=== PATIENT | male | born 1980 | race Caucasian/White ===

== ENCOUNTER 2016-08-25 20:48 | Emergency (ER) | payer BC, OTHER ==
[2016-08-25 21:04] VITALS: BMI 36.5
--- NOTE | 2016-08-25 22:46 | PDOC ---
History of Present Illness - General Chief Complaint: Chest Pain Stated Complaint: CHEST PAIN Time Seen by Provider: 08/25/16 22:02 History Source: Patient Exam Limitations: No Limitations - History of Present Illness Initial Comments: 08/26/16 01:50 36-year-old male with no previous medical problems presents with atraumatic diffuse anterior chest wall tenderness for the past several days, nonpleuritic, radiating in a belt-like distribution posteriorly, exacerbated by palpation and truncal movements. Patient denies fevers/chills/nausea/vomiting/diarrhea. Patient denies lower extremity edema. There is no history of DVT or PE in the past. There is no family history of early cardiac . REVIEW OF SYSTEMS CONSTITUTIONAL: No fever, no chills, no fatigue EYES: No visual changes ENT: No ear pain, no sore throat CARDIOVASCULAR: + chest pain, no palpitations RESPIRATORY: No cough, no SOB GI: No abdominal pain, no nausea, no vomiting, no constipation, no diarrhea GENITOURINARY: No dysuria, no frequency, no hematuria MUSKULOSKELETAL: No backpain, no joint pain, no myalgias SKIN: No rash NEURO: No headache EXAMINATION CONSTITUTIONAL: Well-appearing; well-nourished; in no apparent distress HEAD: Normocephalic; atraumatic EYES: PERRL; EOM intact ENMT: External appears normal; normal oropharynx NECK: Supple; non-tender; no cervical lymphadenopathy CARD: Normal S1, S2; no murmurs, rubs, or gallops RESP: Normal chest excursion with respiration; breath sounds clear and equal bilaterally; + bilateral parasternal tenderness to palpation, reproducing the patient's symptoms; no wheezes, rhonchi, or rales ABD: Soft, non-distended; non-tender; no palpable organomegaly, no palpable hernias EXT: Normal ROM in all four extremities; non-tender to palpation; distal pulses intact SKIN: Warm, dry, no rash NEURO: No focal neurological deficiencies. Past History - Past Medical History Allergies/Adverse Reactions: Allergies Allergy/AdvReac Type Severity Reaction Status Date / Time Pork/Porcine Containing Allergy Verified 08/25/16 20:59 Products Home Medications: Ambulatory Orders NK [No Known Home Medication] 03/16/15 Kidney Stones: Yes - Immunization History Immunization Up to Date: Yes - Psycho/Social/Smoking Cessation Hx Anxiety: No Suicidal Ideation: No Smoking Status: No Smoking History: Never smoked Have you smoked in the past 12 months: Yes Number of Cigarettes Smoked Daily: 0 Information on smoking cessation initiated: No Hx Alcohol Use: No Drug/Substance Use Hx: No Substance Use Type: Alcohol *Physical Exam - Vital Signs Last Vital Signs Temp Pulse Resp BP Pulse Ox 98.3 F 76 16 146/86 98 08/25/16 20:59 08/25/16 20:59 08/25/16 20:59 08/25/16 20:59 08/25/16 20:59 Heart Score/ECG Review - History History: Slightly suspicious - Electrocardiogram EKG: Non specific repolarization disturbance - Age Age: </= 45 - Risk Factors Based on the list above the patient has:: No risk factors known - Troponin Troponin: </= normal limit - Score Heart Score - Total: 1 - ECG Intrepretation Comment:: 08/26/16 01:53 Normal sinus rhythm, 73, left axis deviation, RBBB, positive voltage criteria for LVH in lead aVL, Q waves in V1 and V2, inverted T in lead 3, abnormal EKG, unchanged from EKG performed in March 2015. ED Treatment Course - LABORATORY CBC & Chemistry Diagram: 08/25/16 23:27 08/25/16 23:27 - ADDITIONAL ORDERS Additional order review: Laboratory Results 08/26/16 08/25/16 08/25/16 01:34 23:27 23:27 INR Sodium 143 Potassium 3.8 Chloride 105 Carbon Dioxide 29 Anion Gap 9 BUN 14 Creatinine 1.1 Creat Clearance w eGFR > 60 Random Glucose 102 Calcium 9.0 Total Bilirubin 0.4 AST 26 D ALT 35 D Alkaline Phosphatase 83 Creatine Kinase 863 H Creatine Kinase Index 0.8 CK-MB (CK-2) 7.101 H CK-MB (CK-2) Rel Index Cancelled Troponin I < 0.02 Total Protein 6.9 Albumin 3.7 Urine Color Yellow Urine Appearance Clear Urine pH 5.0 D Urine Protein Negative Urine Glucose (UA) Negative Urine Ketones Negative Urine Blood Negative Urine Nitrite Negative Urine Bilirubin Negative Urine Urobilinogen Negative Ur Leukocyte Esterase Negative 08/25/16 23:27 INR 0.99 Sodium Potassium Chloride Carbon Dioxide Anion Gap BUN Creatinine Creat Clearance w eGFR Random Glucose Calcium Total Bilirubin AST ALT Alkaline Phosphatase Creatine Kinase Creatine Kinase Index CK-MB (CK-2) CK-MB (CK-2) Rel Index Troponin I Total Protein Albumin Urine Color Urine Appearance Urine pH Urine Protein Urine Glucose (UA) Urine Ketones Urine Blood Urine Nitrite Urine Bilirubin Urine Urobilinogen Ur Leukocyte Esterase 08/25/16 23:27 RBC 4.58 MCV 83.1 MCHC 32.3 RDW 14.7 MPV 10.9 Neutrophils % 61.5 Lymphocytes % 28.1 Monocytes % 8.0 Eosinophils % 1.8 D Basophils % 0.6 - RADIOLOGY Radiology Studies Ordered: Category Date Time Status CHEST PA & LAT [RAD] Stat Radiology 08/26/16 01:24 Taken Medical Decision Making - Medical Decision Making 08/26/16 01:53 Patient is a healthy 36-year-old male who presents with atypical, reproducible chest pain and abnormal EKG. Chest x-ray reveals no evidence of cardiomegaly or infiltrate or effusion. CBC/CMP within normal limit. Troponin is negative but CPK is elevated. I do not suspect ACS at this time. Rhabdomyolysis likely related to physical exertion is likely. Patient's heart score is 1. Will hydrate , we'll repeat cardiac enzymes at 6 hours. If trending down, we'll discharge with cardiology follow-up.
[2016-08-25 23:46] LABS: BASOPHIL 0.6 % (0-2.0); EOSINOPHIL 1.8 % (0-4.5); MCH 26.8 pg (25.7-33.7); MCHC 32.3 g/dl (32.0-35.9); MEAN CELL VOLUME 83.1 fl (80-96); MEAN PLT VOLUME 10.9 fl (7.5-11.1); NEUTROPHILS 61.5 % (42.8-82.8); PLATELET COUNT 191 K/MM3 (134-434); RDW 14.7 % (11.9-15.9); WHITE BLOOD COUNT 7.7 K/mm3 (4.0-10.0)
[2016-08-26 00:14] LABS: ALBUMIN 3.7 g/dl (3.4-5.0); ANION GAP 9 (8-16); BILIRUBIN,TOTAL 0.4 mg/dL (0.2-1.0); CO2 29 mmol/L (21-32); CREATININE 1.1 mg/dL (0.7-1.3); GLUCOSE,RANDOM 102 mg/dL (74-106); SGOT/AST 26 U/L (15-37); SGPT/ALT 35 U/L (12-78); TOT PROT 6.9 g/dl (6.4-8.2)
[2016-08-26 00:16] LABS: ALK PHOS 83 U/L (45-117); TROPONIN I < 0.02 ng/ml (0.00-0.05)
[2016-08-26 00:18] LABS: INR 0.99 (0.82-1.09); PROTHROMBIN TIME (PATIENT) 10.9 SEC (9.98-11.88)
[2016-08-26 01:40] LABS: URINE APPEARANCE CLEAR; URINE BILIRUBIN NEGATIVE (NEGATIVE); URINE BLOOD NEGATIVE (NEGATIVE); URINE COLOR YELLOW; URINE GLUCOSE (UA) NEGATIVE (NEGATIVE); URINE KETONE NEGATIVE (NEGATIVE); URINE LEUK ESTERASE NEGATIVE (NEGATIVE); URINE NITRITE NEGATIVE (NEGATIVE); URINE PROTEIN NEGATIVE (NEGATIVE); URINE UROBILINOGEN NEGATIVE E.U./dl (0.2-1.0)
[2016-08-26 05:46] LABS: TROPONIN I < 0.02 ng/ml (0.00-0.05)
[2016-08-26 06:12] VITALS: BP 140/86; PULSE 62; TEMP 97.8
--- NOTE | 2016-08-26 06:46 | PDOC ---
*Physical Exam - Vital Signs Last Vital Signs Temp Pulse Resp BP Pulse Ox 97.8 F 62 17 140/86 98 08/26/16 06:11 08/26/16 06:11 08/26/16 06:11 08/26/16 06:11 08/26/16 06:11 ED Treatment Course - LABORATORY CBC & Chemistry Diagram: 08/25/16 23:27 08/25/16 23:27 - ADDITIONAL ORDERS Additional order review: Laboratory Results 08/26/16 08/26/16 08/25/16 05:00 01:34 23:27 INR Sodium Potassium Chloride Carbon Dioxide Anion Gap BUN Creatinine Creat Clearance w eGFR Random Glucose Calcium Total Bilirubin AST ALT Alkaline Phosphatase Creatine Kinase 711 H Creatine Kinase Index CK-MB (CK-2) CK-MB (CK-2) Rel Index Cancelled Troponin I < 0.02 Total Protein Albumin Urine Color Yellow Urine Appearance Clear Urine pH 5.0 D Urine Protein Negative Urine Glucose (UA) Negative Urine Ketones Negative Urine Blood Negative Urine Nitrite Negative Urine Bilirubin Negative Urine Urobilinogen Negative Ur Leukocyte Esterase Negative 08/25/16 08/25/16 23:27 23:27 INR 0.99 Sodium 143 Potassium 3.8 Chloride 105 Carbon Dioxide 29 Anion Gap 9 BUN 14 Creatinine 1.1 Creat Clearance w eGFR > 60 Random Glucose 102 Calcium 9.0 Total Bilirubin 0.4 AST 26 D ALT 35 D Alkaline Phosphatase 83 Creatine Kinase 863 H Creatine Kinase Index 0.8 CK-MB (CK-2) 7.101 H CK-MB (CK-2) Rel Index Troponin I < 0.02 Total Protein 6.9 Albumin 3.7 Urine Color Urine Appearance Urine pH Urine Protein Urine Glucose (UA) Urine Ketones Urine Blood Urine Nitrite Urine Bilirubin Urine Urobilinogen Ur Leukocyte Esterase 08/25/16 23:27 RBC 4.58 MCV 83.1 MCHC 32.3 RDW 14.7 MPV 10.9 Neutrophils % 61.5 Lymphocytes % 28.1 Monocytes % 8.0 Eosinophils % 1.8 D Basophils % 0.6 *DC/Admit/Observation/Transfer Diagnosis at time of Disposition: Chest pain - Discharge Dispostion Disposition: HOME Condition at time of disposition: Stable - Referrals Referrals: Titi Arteaga MD [Primary Care Provider] - Francisco Haley MD [Staff Physician] - - Patient Instructions Printed Discharge Instructions: DI for Chest Pain - Post Discharge Activity
--- NOTE | 2016-08-26 17:05 | EKG ---
Test Reason : Blood Pressure : / mmHG Vent. Rate : 065 BPM Atrial Rate : 065 BPM P-R Int : 166 ms QRS Dur : 118 ms QT Int : 396 ms P-R-T Axes : 034 -27 -18 degrees QTc Int : 411 ms SINUS RHYTHM WITH OCCASIONAL PREMATURE VENTRICULAR COMPLEXES LEFT VENTRICULAR HYPERTROPHY WITH QRS WIDENING T WAVE ABNORMALITY, CONSIDER INFERIOR ISCHEMIA ABNORMAL ECG NO PREVIOUS ECGS AVAILABLE Confirmed by MD MARILEE, PREETI ([id number]) on 08/26/2016 5:05:31 PM Referred By: Confirmed By:PREETI HUNT MD
--- NOTE | 2016-08-26 17:13 | EKG ---
Test Reason : Blood Pressure : / mmHG Vent. Rate : 073 BPM Atrial Rate : 073 BPM P-R Int : 166 ms QRS Dur : 114 ms QT Int : 378 ms P-R-T Axes : 049 -31 -09 degrees QTc Int : 416 ms NORMAL SINUS RHYTHM POSSIBLE LEFT ATRIAL ENLARGEMENT LEFT AXIS DEVIATION RIGHT BUNDLE BRANCH BLOCK LEFT VENTRICULAR HYPERTROPHY CANNOT RULE OUT SEPTAL INFARCT , AGE UNDETERMINED NONSPECIFIC ST ABNORMALITY ABNORMAL ECG NO PREVIOUS ECGS AVAILABLE Confirmed by MD MARILEE, PREETI ([id number]) on 08/26/2016 5:12:47 PM Referred By: Confirmed By:PREETI HUNT MD
== END 2016-08-26 06:58 | disposition home or self-care (01) ==
LOC: JER 20:48
DX: R07.89 Other chest pain (principal); R74.8 Abnormal levels of other serum enzymes
CPT/HCPCS: 36415; 71020-TC; 80053; 81003; 82550; 82553; 84484; 85025; 85610; 87086; 93005; 93010; 99283-25

== ENCOUNTER 2017-03-01 15:25 | Emergency (ER) | payer BC ==
[2017-03-01 15:32] VITALS: BP 173/111; PULSE 72; TEMP 97.4; BMI 37.5
--- NOTE | 2017-03-01 15:33 | PDOC ---
Rapid Medical Evaluation Time Seen by Provider: 03/01/17 15:28 Medical Evaluation: Allergies Allergy/AdvReac Type Severity Reaction Status Date / Time Pork/Porcine Containing Allergy Verified 08/25/16 20:59 Products I have performed a brief in-person evaluation of this patient. The patient presents with a chief complaint of: low back pain x 3 days. Patient lifts heavy objects frequently at work and thinks that's where he injured his back. Worse with movements. Pertinent physical exam findings: No midline lumbar spine TTP or step offs. Reproducible pain with palpation of left lumbar paravertebral muscles. I have ordered the following: Nothing The patient will proceed to the ED for further evaluation.
[2017-03-01] MEDS ORDERED: KETOROLAC TROMETHAMINE 60 MG/2 ML VIAL IM ONE (15:53)
[2017-03-01] MEDS ORDERED: KETOROLAC TROMETHAMINE 60 MG/2 ML VIAL ONE (15:57)
--- NOTE | 2017-03-01 16:09 | PDOC ---
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 SURGICAL HISTORY: Denies ALLERGIES: Pork REVIEW OF SYSTEMS General/Constitutional: Denies fever or chills. Denies weakness, weight change. HEENT: Denies change in vision. Denies ear pain or discharge. Denies sore throat. Cardiovascular: Denies chest pain or shortness of breath. Respiratory: Denies cough, wheezing, or hemoptysis. Gastrointestinal: Denies nausea, vomiting, diarrhea or constipation. Denies rectal bleeding. Genitourinary: Denies dysuria, frequency, or change in urination. Musculoskeletal: Left lower back pain. Skin and breasts: Denies rash or easy bruising. rgy. PHYSICAL EXAM General Appearance: Well-appearing, appropriately dressed. No apparent distress , no intoxication. HEENT: EOMI, PERRLA, normal ENT inspection, normal voice, TMs normal, pharynx normal. No conjunctival pallor. No photophobia, scleral icterus. Neck: Supple. Trachea midline. No tenderness, rigidity, carotid bruit, stridor , lymphadenopathy, or thyromegaly. Respiratory/Chest: Lungs CTAB. No shortness of breath, chest tenderness, respiratory distress, accessory muscle use. No crackles, rales, rhonchi, stridor , wheezing, dullness Cardiovascular: RRR. S1, S2. No JVD, murmur, bradycardia, tachycardia. Vascular Pulses: Dorsalis-Pedis (R): 2+, Dorsalis-Pedis (L): 2+ Gastrointestinal/Abdominal: Normal bowel sounds. Abdomen soft, non-distended. No tenderness or rebound tenderness. No organomegaly, pulsatile mass, guarding , hernia, hepatomegaly, splenomegaly. Lymphatic: No adenopathy, tenderness. Musculoskeletal/Extremities: Normal inspection. FROM of all extremities, normal capillary refill. Pelvis Stable. No CVA tenderness. No tenderness to extremities, pedal edema, swelling, erythema or deformity. Integumentary: Appropriate color, dry, warm. No cyanosis, erythema, jaundice or rash Neurologic: dam attendant II-XII intact. Fully oriented, alert. Appropriate mood/affect. Motor strength 5/5. No appreciable EOM palsy, facial droop or sensory deficit. Past History - Past Medical History Allergies/Adverse Reactions: Allergies Allergy/AdvReac Type Severity Reaction Status Date / Time Pork/Porcine Containing Allergy Verified 03/01/17 15:32 Products Home Medications: Ambulatory Orders Cyclobenzaprine HCl 10 mg PO HS #7 tablet 03/01/17 Naproxen [Naprosyn -] 250 mg PO BID #14 tablet 03/01/17 COPD: No HTN: Yes Kidney Stones: Yes - Immunization History Immunization Up to Date: Yes - Suicide/Smoking/Psychosocial Hx Smoking Status: No Smoking History: Never smoked Have you smoked in the past 12 months: Yes Number of Cigarettes Smoked Daily: 0 Hx Alcohol Use: Yes (SOCIAL) Drug/Substance Use Hx: No Substance Use Type: Alcohol *Physical Exam - Vital Signs Last Vital Signs Temp Pulse Resp BP Pulse Ox 97.4 F L 72 20 173/111 99 03/01/17 15:28 03/01/17 15:28 03/01/17 15:28 03/01/17 15:28 03/01/17 15:28 Medical Decision Making - Medical Decision Making 03/01/17 16:09 36 yo M with no significant PMH presents to [facility] with pain to left lower back x "a few days." -Toradol 60 mg IM NSAIDS, muscle relaxants *DC/Admit/Observation/Transfer Diagnosis at time of Disposition: Pain of back and left lower extremity - Discharge Dispostion Disposition: HOME Condition at time of disposition: Stable Admit: No - Prescriptions Prescriptions: Cyclobenzaprine HCl 10 mg PO HS #7 tablet Naproxen [Naprosyn -] 250 mg PO BID #14 tablet - Referrals Referrals: Titi Arteaga MD [Primary Care Provider] - Dario Aguayo MD [Staff Physician] - - Patient Instructions Printed Discharge Instructions: DI for Low Back Pain Additional Instructions: Please take medication as prescribed, do NOT drive, drink alcohol, or operate machinery while taking cyclobenzaprine. As discussed, if your symptoms do not improve in 5-7 days, please follow up with an orthopedics for further evaluation and a possible MRI or physical therapy. If you experience any loss of sensation to your extremities, any loss of bowel or bladder function, any swelling or increased pain to your leg, please return to the ER. - Post Discharge Activity Forms/Work/School Notes: Back to Work
== END 2017-03-01 16:28 | disposition home or self-care (01) ==
LOC: JERFT 15:25
PROC: 3E0233Z Introduction of Anti-inflammatory into Muscle, Percutaneous Approach (ICD-10-PCS; principal; 2017-03-01)
DX: M54.5 Low back pain (principal); M79.662 Pain in left lower leg
CPT/HCPCS: 99281-25

== ENCOUNTER 2017-04-26 13:19 | Emergency (ER) | payer BC ==
[2017-04-26 13:33] VITALS: BMI 21.2
[2017-04-26 15:07] LABS: BASO % 0.6 % (0-2.0); EOS % 0.3 % (0-4.5); HEMATOCRIT 40.9 % (35.4-49); HEMOGLOBIN 13.5 GM/dL (11.7-16.9); LYMPH % 15.1 % (8-40); MCH 27.4 pg (25.7-33.7); MEAN CELL VOLUME 83.1 fl (80-96); MEAN PLT VOLUME 10.3 fl (7.5-11.1); MONO % 11.5 % (3.8-10.2); NEUT % 72.5 % (42.8-82.8); PLATELET COUNT 195 K/MM3 (134-434); RBC 4.92 M/mm3 (4.00-5.60); WHITE BLOOD COUNT 4.7 K/mm3 (4.0-10.0)
--- NOTE | 2017-04-26 15:11 | PDOC ---
History of Present Illness - General Chief Complaint: Pain, Acute Stated Complaint: PAIN/ CHEST, SIDE Time Seen by Provider: 04/26/17 14:15 - History of Present Illness Initial Comments: 04/26/17 15:11 36 y.o. male with a PMH of HTN (intermittently treated, has not taken medications for the last 2-3 months) who presents to the ED today c/o 3 day h/o of abdominal pain that is sharp, intermittent, varying in intensity from 5/10-10 /10 that radiates to his back. Patient denies any associated nausea/vomiting, diarrhea/constipation. Patient has been tolerating PO intake and notes his last BM was this morning and was normal. Patient further denies any testicular pain, scrotal pain, dysuria/hematuria. Patient notes he was evaluated by his PMD last week and was told he needed to start on HTN medications however he has not done so yet. NKDA Surgical: R Hand Surgery Social: (-) cigarettes, (+) alcohol 4-5 drinks weekly, (-) recreational drugs PMD: Dr. Rose ([facility]) Past History - Past Medical History Allergies/Adverse Reactions: Allergies Allergy/AdvReac Type Severity Reaction Status Date / Time Pork/Porcine Containing Allergy Verified 04/26/17 13:28 Products COPD: No HTN: Yes Kidney Stones: Yes - Immunization History Immunization Up to Date: Yes - Suicide/Smoking/Psychosocial Hx Smoking Status: No Smoking History: Never smoked Have you smoked in the past 12 months: Yes Number of Cigarettes Smoked Daily: 0 Hx Alcohol Use: Yes (SOCIAL) Drug/Substance Use Hx: No Substance Use Type: Alcohol Review of Systems - Review of Systems Constitutional: No: Chills, Fever HEENTM: No: Recent change in vision Respiratory: No: Shortness of Breath, Stridor, Wheezing Cardiac (ROS): No: Chest Pain, Edema, Lightheadedness, Palpitations ABD/GI: Yes: Abdominal cramping. No: Constipated, Diarrhea, Nausea, Vomiting : No: Burning, Dysuria *Physical Exam - Vital Signs Last Vital Signs Temp Pulse Resp BP Pulse Ox 99.5 F 78 19 159/91 98 04/26/17 13:28 04/26/17 13:28 04/26/17 13:28 04/26/17 13:28 04/26/17 13:28 - Physical Exam Comments: 04/26/17 17:43 GENERAL: Awake, no acute distress HEAD: No signs of trauma EYES: PERRLA, EOMI, sclera anicteric, conjunctiva clear NECK: Normal ROM, supple, no lymphadenopathy, JVD, or masses LUNGS: Breath sounds equal, clear to auscultation bilaterally. No wheezes, and no crackles HEART: Regular rate and rhythm, normal S1 and S2, no murmurs, rubs or gallops ABDOMEN: Soft, mild RUQ tenderness, equivocal Castellon's sign, normoactive bowel sounds. No guarding, no rebound. No masses EXTREMITIES: Normal range of motion, no edema. No clubbing or cyanosis. 2+ peripheral pulses NEUROLOGICAL: cranial nerves grossly intact, non-antalgic/non-ataxic gait SKIN: Warm, Dry, normal turgor, no rashes or lesions noted. ED Treatment Course - LABORATORY CBC & Chemistry Diagram: 04/26/17 15:00 04/26/17 15:00 Medical Decision Making - Medical Decision Making 04/26/17 16:38 36 y.o. male who presents with RUQ pain that radiates to his R flank. Clinical suspicion for cholelcystitis/bilary colic vs. pancreatitis vs. nephrolithiasis. Will obtain U/S, UA. Reassess. 04/26/17 17:26 U/S shows distended GB no cholelithiasis as well as no nephrolithiasis/ hydropnephrosis. Will obtain CT Abdomen. UA shows 1+ hematuria, in light of Cr 1.1, likely hematuria 2/2 to untreated HTN. 04/26/17 17:49 CT abdomen shows no diverticulitis as well as no appendicitis, abscess, obstruction, unremarkable liver, pancreas as well as abdominal aorta. Patient tolerating PO intake, ambulatory around unit. Will discharge home with return precautions, instruction to follow up with PCP, counseling on importance of following anti-hypertensive regimen and referral to gastroenterology. *DC/Admit/Observation/Transfer Diagnosis at time of Disposition: Abdominal pain - Discharge Dispostion Disposition: HOME Condition at time of disposition: Good Admit: No - Referrals Referrals: ON STAFF,NOT [Primary Care Provider] - Nacho Cui DO [Staff Physician] - - Patient Instructions Printed Discharge Instructions: DI for Abdominal Pain-Adult Additional Instructions: You were evaluated today for abdominal pain. All of your labs and imaging showed no concerning findings. Please follow-up with your primary care doctor, Dr. Rose, in the next 3 days. A referral has been provided to Gastroenterology for further evaluation of your abdominal pain. Return to the Emergency Department for any new/worsening/concerning symptoms. - Post Discharge Activity Forms/Work/School Notes: Back to Work
[2017-04-26 15:26] LABS: URINE APPEARANCE CLEAR; URINE BILIRUBIN NEGATIVE (NEGATIVE); URINE BLOOD 1+ (NEGATIVE); URINE COLOR LTYELLOW; URINE GLUCOSE (UA) NEGATIVE (NEGATIVE); URINE KETONE NEGATIVE (NEGATIVE); URINE LEUK ESTERASE NEGATIVE (NEGATIVE); URINE NITRITE NEGATIVE (NEGATIVE); URINE PROTEIN NEGATIVE (NEGATIVE)
[2017-04-26 15:28] LABS: URINE MUCUS RARE
[2017-04-26 15:33] LABS: ALBUMIN 3.7 g/dl (3.4-5.0); ALK PHOS 96 U/L (45-117); ANION GAP 8 (8-16); BILIRUBIN,TOTAL 0.3 mg/dL (0.2-1.0); BLOOD UREA NITROGEN 10 mg/dL (7-18); CALCIUM 9.1 mg/dL (8.5-10.1); CHLORIDE 101 mmol/L (98-107); CO2 29 mmol/L (21-32); CREATININE 1.1 mg/dL (0.7-1.3); GLUCOSE,RANDOM 116 mg/dL (74-106); LIPASE 192 U/L (73-393); SGOT/AST 23 U/L (15-37); SGPT/ALT 40 U/L (12-78); SODIUM 138 mmol/L (136-145); TOT PROT 7.4 g/dl (6.4-8.2)
--- NOTE | 2017-04-26 16:25 | PDOC ---
Attending Attestation - [facility] HPI: 04/26/17 16:28 The patient is a 36 year old male, with a significant past medical history of hypertension and kidney stones, who presents to the emergency department with intermittent right upper quadrant pain radiating into the right flank for approximately 2-3 days. Patient The patient reports intermittent nausea and 1 episode of nonbloody/nonbilious vomiting. Patient reports his pain is exacerbated with movement and alleviated with Tylenol/Ibuprofen. Patient reports his symptoms are similar to when he had a kidney stone in the past. He denies any associated diarrhea or constipation. He denies any fever, chills, headache, or dizziness. He denies any dysuria, hematuria, frequency, or urgency. He denies any chest pain, shortness of breath, diaphoresis, or palpitations. He denies any recent travel or sick contacts. - Medical Decision Making 04/26/17 16:33 EXAM: Spiral CT (renal) INTERPRETED BY: Dr. Quiles REVIEWED BY: Dr. Price There is no evidence of calcifications within the kidneys, ureters or urinary bladder suspicious for urinary tract calculi. There is no evidence of hydronephrosis or obstructive uropathy. No significant abnormalities of the liver, spleen, pancreas, or adrenal glands are identified. There is no evidence of intra-abdominal, retroperitoneal or pelvic mass lesions, fluid collections or lymphadenopathy. There is no evidence of pneumoperitoneum, bowel obstruction or intra-abdominal abscess. There is no CT evidence of acute appendicitis or diverticulitis. There is no evidence of acute bony pathology. IMPRESSION: Normal CT scan of the abdomen and pelvis with no evidence of urinary tract calculi, obstructive uropathy or acute pathology. EXAM: Gallbladder US INTERPRETED BY: Dr. Powell REVIEWED BY: Dr. Price The liver is within normal limits in size and echotexture. Gallbladder is adequately distended without intraluminal stones or thickening of its wall. No intra or extrahepatic bile duct dilatation is seen. The right kidney measures 11.9 cm sagittal length and appears unremarkable. Visualized portion of the pancreatic head and body appear unremarkable Visualized portion of the proximal abdominal aorta and inferior vena cava appear unremarkable. Normal flow in the main portal vein. IMPRESSION: Unremarkable examination. Documentation prepared by Paco Lindsey, acting as medical transport specialist for Debby Price MD. <Paco Lindsey - Last Filed: 04/26/17 18:11> - Resident Resident Name: Sarah Capone - ED Attending Attestation I have performed the following: I have examined & evaluated the patient, The case was reviewed & discussed with the resident, I agree w/resident's findings & plan, Exceptions are as noted - Physicial Exam PE: GENERAL: Awake, alert, and fully oriented, in no acute distress HEAD: No signs of trauma EYES: PERRLA, EOMI, sclera anicteric, conjunctiva clear ENT: Auricles normal inspection, hearing grossly normal, nares patent, oropharynx clear without exudates. Moist mucosa NECK: Normal ROM, supple, no lymphadenopathy, JVD, or masses LUNGS: Breath sounds equal, clear to auscultation bilaterally. No wheezes, and no crackles HEART: Regular rate and rhythm, normal S1 and S2, no murmurs, rubs or gallops ABDOMEN: Soft, +RUQ tenderness, normoactive bowel sounds. No guarding, no rebound. No masses EXTREMITIES: Normal range of motion, no edema. No clubbing or cyanosis. No cords, erythema, or tenderness NEUROLOGICAL: Cranial nerves II through XII grossly intact. Normal speech, normal gait SKIN: Warm, Dry, normal turgor, no rashes or lesions noted. - Medical Decision Making Pt with RUQ pain radiating to R mid-back. DDx includes gastritis vs acute kimberley vs kidney stone. <Debby Price - Last Filed: 04/28/17 12:40>
[2017-04-26] MEDS ORDERED: KETOROLAC TROMETHAMINE 15 MG/ML VIAL IVPUSH ONE (16:40)
[2017-04-26] MEDS ORDERED: SODIUM CHLORIDE 0.9% 500 ML INFUS.BAG IV ONE (16:40)
[2017-04-26] MEDS ORDERED: KETOROLAC TROMETHAMINE 30 MG/1 ML VIAL ONE (16:49)
[2017-04-26 17:54] VITALS: BP 139/90; PULSE 72; TEMP 99.2
--- NOTE | 2017-04-27 11:41 | EKG ---
Test Reason : Blood Pressure : / mmHG Vent. Rate : 070 BPM Atrial Rate : 070 BPM P-R Int : 164 ms QRS Dur : 106 ms QT Int : 366 ms P-R-T Axes : 057 -36 -20 degrees QTc Int : 395 ms NORMAL SINUS RHYTHM LEFT AXIS DEVIATION INCOMPLETE RIGHT BUNDLE BRANCH BLOCK MINIMAL VOLTAGE CRITERIA FOR LVH, MAY BE NORMAL VARIANT ABNORMAL ECG WHEN COMPARED WITH ECG OF 26-AUG-2016 05:04, PREMATURE VENTRICULAR COMPLEXES ARE NO LONGER PRESENT Confirmed by AR BAIRES MD ([id number]) on 04/27/2017 11:41:25 AM Referred By: Confirmed By:AR BAIRES MD
== END 2017-04-26 18:52 | disposition home or self-care (01) ==
LOC: JER 13:19
PROC: 3E0337Z Introduction of Electrolytic and Water Balance Substance into Peripheral Vein, Percutaneous Approach (ICD-10-PCS; principal; 2017-04-26)
PROC: 3E0333Z Introduction of Anti-inflammatory into Peripheral Vein, Percutaneous Approach (ICD-10-PCS; 2017-04-26)
DX: R10.9 Unspecified abdominal pain (principal)
CPT/HCPCS: 36415; 74176; 76705-TC; 80053; 81003; 81015; 83690; 85025; 93005; 93010; 99282-25

== ENCOUNTER 2018-05-11 16:38 | Emergency (ER) | payer OTHER, BC ==
--- NOTE | 2018-05-11 17:06 | PDOC ---
Rapid Medical Evaluation Time Seen by Provider: 05/11/18 17:05 Medical Evaluation: Allergies Allergy/AdvReac Type Severity Reaction Status Date / Time Pork/Porcine Containing Allergy Verified 04/26/17 13:28 Products 05/11/18 17:05 I performed a brief in-person evaluation of this patient. Chief complaint: Left ankle and foot pain s/p stepped into manhole Pertinent physical exam findings: Tenderness left lateral midfoot I have ordered the following: Xray Patient to proceed to the ED for further evaluation. Discharge Disposition - Diagnosis Injury, foot - Referrals - Patient Instructions - Post Discharge Activity
[2018-05-11 17:09] VITALS: BP 155/92; PULSE 70; BMI 37.0
[2018-05-11] MEDS ORDERED: IBUPROFEN 600 MG TABLET (FP) PO ONE (19:14)
--- NOTE | 2018-05-11 19:17 | PDOC ---
History of Present Illness - General Chief Complaint: Injury Stated Complaint: INJURY AT WORK Time Seen by Provider: 05/11/18 17:05 History Source: Patient Exam Limitations: No Limitations - History of Present Illness Initial Comments: 05/11/18 19:12 Patient fell into pothole this morning while at work, causing an inversion injury to his left ankle. Has been unable to walk on since. States has a history of ankle sprain 05/11/18 19:12 Occurred: reports: this morning Severity: reports: moderate Pain Location: reports: lower extremity Method of Injury: Yes: fall Associated Symptoms (Fall): denies symptoms Past History - Travel Traveled outside of the country in the last 30 days: No Close contact w/someone who was outside of country & ill: No - Past Medical History Allergies/Adverse Reactions: Allergies Allergy/AdvReac Type Severity Reaction Status Date / Time Pork/Porcine Containing Allergy Verified 05/11/18 17:05 Products Home Medications: Ambulatory Orders Ibuprofen 600 mg PO Q6H PRN #30 tablet 05/11/18 COPD: No HTN: Yes Kidney Stones: Yes - Immunization History Immunization Up to Date: Yes - Suicide/Smoking/Psychosocial Hx Smoking Status: No Smoking History: Never smoked Have you smoked in the past 12 months: Yes Number of Cigarettes Smoked Daily: 0 Hx Alcohol Use: Yes (SOCIAL) Drug/Substance Use Hx: No Substance Use Type: Alcohol Review of Systems - Review of Systems Able to Perform ROS?: Yes Is the patient limited Upper Sorbian proficient: Yes Constitutional: Yes: Symptoms Reported, See HPI. No: Fever, Malaise HEENTM: No: Symptoms Reported Musculoskeletal: Yes: Symptoms Reported, See HPI, Joint Pain, Joint Swelling All Other Systems: Reviewed and Negative *Physical Exam - Vital Signs Last Vital Signs Temp Pulse Resp BP Pulse Ox 70 18 155/92 100 05/11/18 17:06 05/11/18 17:06 05/11/18 17:06 05/11/18 17:06 - Physical Exam General Appearance: Yes: Nourished, Appropriately Dressed, Apparent Distress, Mild Distress HEENT: positive: NUZHAT, Normal ENT Inspection, TMs Normal, Pharynx Normal Neck: positive: Supple. negative: Tender Respiratory/Chest: positive: Lungs Clear Extremity: positive: Swelling (patient with point tenderness to lateral malleolus, without crepitus or step-offs. Has mild tenderness to fist metatarsal and has swelling and ecchymoses noted at joint. Able to flex and extend and has neurovascular intact to toes. Negative squeeze test). 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 Aircast and Storm wrap applied, crutch provided. *DC/Admit/Observation/Transfer Diagnosis at time of Disposition: Sprain of left ankle Qualifiers: Encounter type: initial encounter Involved ligament of ankle: unspecified ligament Qualified Code(s): S93.402A - Sprain of unspecified ligament of left ankle, initial encounter - Discharge Dispostion Disposition: HOME Condition at time of disposition: Stable Decision to Admit order: No - Referrals Referrals: Marky Lopez MD [Staff Physician] - - Patient Instructions Additional Instructions: Rest, ice to area on and off for 15 minutes 4-6 times a day Avoid heavy lifting or exercise until pain and swelling is resolved or until further directed Keep area highly elevated to reduce swelling Use splints/Storm wrap as directed Followup with orthopedist in one to 2 days if not improving, if significantly improved may wait one week for followup with orthopedist May use ibuprofen every 6 hours as needed for pain - Post Discharge Activity Forms/Work/School Notes: Back to Work
== END 2018-05-11 19:45 | disposition home or self-care (01) ==
LOC: JERFT 16:38
PROC: 2W3RX1Z Immobilization of Left Lower Leg using Splint (ICD-10-PCS; principal; 2018-05-11)
DX: S93.402A Sprain of unspecified ligament of left ankle, initial encounter (principal); W17.89XA Other fall from one level to another, initial encounter; Y93.89 Activity, other specified; Y92.414 Local residential or business street as the place of occurrence of the external cause; Y99.0 Civilian activity done for income or pay
CPT/HCPCS: 73610-TC-LT-FY; 73630-TC-LT; 99281-25

== ENCOUNTER 2018-10-13 15:39 | Emergency (ER) | payer BC | END 2018-10-13 20:50 | disposition home or self-care (01) | LOC: JER 15:39 ==

== ENCOUNTER 2019-02-26 16:52 | Emergency (ER) | payer BC ==
[2019-02-26 17:31] VITALS: PULSE 81; TEMP 98.2; BMI 35.4
--- NOTE | 2019-02-26 18:06 | PDOC ---
History of Present Illness - General Chief Complaint: Back Pain Stated Complaint: BACK PAIN Time Seen by Provider: 02/26/19 17:56 - History of Present Illness Initial Comments: 02/26/19 18:02 38-year-old male with chief complaint of intermittent dizziness back pain fever and cough x1 day history of kidney stones in the past no urinary symptoms Past History - Past Medical History Allergies/Adverse Reactions: Allergies Allergy/AdvReac Type Severity Reaction Status Date / Time Pork/Porcine Containing Allergy Verified 02/26/19 17:27 Products Home Medications: Ambulatory Orders Ibuprofen 600 mg PO Q6H PRN #30 tablet 05/11/18 COPD: No CHF: No DVT: No Diabetes: No HTN: Yes Hypercholesterolemia: No Kidney Stones: Yes - Immunization History Immunization Up to Date: Yes - Psycho Social/Smoking Cessation Hx Smoking Status: No Smoking History: Never smoked Have you smoked in the past 12 months: Yes Number of Cigarettes Smoked Daily: 0 Hx Alcohol Use: No Drug/Substance Use Hx: No Substance Use Type: Alcohol Review of Systems - Review of Systems Constitutional: Yes: Fever Respiratory: Yes: Cough Musculoskeletal: Yes: Back Pain *Physical Exam - Vital Signs Last Vital Signs Temp Pulse Resp BP Pulse Ox 98.2 F 81 16 178/95 H 0 L 02/26/19 17:27 02/26/19 17:27 02/26/19 17:27 02/26/19 17:27 02/26/19 17:27 - Physical Exam 02/26/19 18:03 GENERAL: The patient is awake, alert, and fully oriented, in no acute distress. HEAD: Normal with no signs of trauma. EYES: sclera anicteric, conjunctiva clear. ENT: Ears normal tympanic membranes normal oropharynx clear uvula midline NECK: Normal range of motion LUNGS: Breath sounds equal, clear to auscultation bilaterally. No wheezes, and no crackles. HEART: S1 and S2 without murmur, rub or gallop. ABDOMEN: Soft, nontender, normoactive bowel sounds. No guarding, no rebound. No masses. EXTREMITIES: Normal range of motion, no edema. No clubbing or cyanosis. No cords, erythema, or tenderness. NEUROLOGICAL: Cranial nerves II through XII grossly intact. Normal speech, normal gait. PSYCH: Normal mood, normal affect. SKIN: Warm, Dry, normal turgor, no rashes or lesions noted. Medical Decision Making - Medical Decision Making 02/26/19 18:47 Influenza swab negative most likely a viral upper respiratory infection not influenza. Patient has not taken antihypertensive medicine. He is asymptomatic in the emergency room otherwise. I will have him follow-up with his primary care physician advised him to restart his medication when he gets home tonight and with instructions to return to the emergency room should he have continuation or worsening of symptoms. 02/26/19 18:53 Blood pressure was rechecked prior to discharge 158/94 patient is asymptomatic he will restart his home meds today Discharge - Discharge Information Problems reviewed: Yes Clinical Impression/Diagnosis: Hypertension, Viral URI with cough Condition: Stable Disposition: HOME - Admission No - Follow up/Referral Referrals: Dread Johnson MD [Staff Physician] - - Patient Discharge Instructions Patient Printed Discharge Instructions: High Blood Pressure Linked to Inflammation, Common Cold Additional Instructions: Return to the emergency room for worsening symptoms. Without fail follow-up with your primary care physician in 1 to 2 days for further evaluation and treatment options. Tylenol as directed for fever. Please start a high blood pressure medication this evening as directed. - Post Discharge Activity
[2019-02-26 18:52] VITALS: BP 158/94
== END 2019-02-26 19:01 | disposition home or self-care (01) ==
LOC: JERFT 16:52
DX: I10 Essential (primary) hypertension (principal); J06.9 Acute upper respiratory infection, unspecified; R05 Cough; Z87.891 Personal history of nicotine dependence; N20.0 Calculus of kidney
CPT/HCPCS: 87804; 99281-25

== ENCOUNTER 2019-11-05 11:41 | Emergency (ER) | payer BC ==
[2019-11-05 11:46] VITALS: BMI 32.6
[2019-11-05] MEDS ORDERED: SODIUM CHLORIDE 1,000 ML IV STA ×2 (12:19→14:24)
[2019-11-05] MEDS ORDERED: ACETAMINOPHEN 1000 MG/100 ML VIAL (NON FORMULARY) IVPB ONE ×2 (12:19→17:08)
--- NOTE | 2019-11-05 12:19 | PDOC ---
History of Present Illness - General Chief Complaint: Pain, Acute Stated Complaint: ABD. PAIN Time Seen by Provider: 11/05/19 12:07 History Source: Patient Exam Limitations: No Limitations Past History - Travel History Traveled outside of the country in the last 30 days: No Close contact w/someone who was outside of country & ill: No - Medical History Allergies/Adverse Reactions: Allergies Allergy/AdvReac Type Severity Reaction Status Date / Time Pork/Porcine Containing Allergy Severe Verified 11/05/19 11:42 Products DUST Allergy Mild Uncoded 11/05/19 11:42 POLLEN Allergy Mild Uncoded 11/05/19 11:42 Home Medications: Ambulatory Orders Amlodipine Besylate/Benazepril [Lotrel 10-20 mg Capsule] 1 cap PO DAILY 05/08/19 Hydrocortisone 1% Cream [Hytone 1% Cream -] 1 applic TP DAILY 05/08/19 Pantoprazole Sodium [Protonix -] 20 mg PO DAILY 05/08/19 Ciprofloxacin [Cipro (Restricted To Id)] 500 mg PO Q12H #14 tablet 11/05/19 Ibuprofen 600 mg PO Q6H #30 tablet 11/05/19 metroNIDAZOLE [Metronidazole] 500 mg PO TID #21 tablet 11/05/19 COPD: No CHF: No DVT: No Diabetes: No Disorders: Yes (KIDNEY STONES) HTN: Yes Hypercholesterolemia: No Kidney Stones: Yes - Immunization History Immunization Up to Date: Yes - Psycho-Social/Smoking History Smoking Status: No Smoking History: Never smoked Have you smoked in the past 12 months: Yes Number of Cigarettes Smoked Daily: 0 - Substance Abuse Hx (Audit-C & DAST Scrn) How often the patient has a drink containing alcohol: Never Score: In Men: 4 or > Positive; In Women: 3 or > Positive: 0 Screen Result (Pos requires Nsg. Audit-10AR): Negative In the last yr the pt used illegal drug/Rx for NonMed reason: No Score: Yes response is considered Positive: 0 Screen Result (Positive result requires Nsg. DAST-10): Negative Review of Systems - Review of Systems Able to Perform ROS?: Yes Comments:: 11/05/19 12:50 CONSTITUTIONAL: Absent: fever, chills, diaphoresis, generalized weakness, malaise, loss of appetite HEENT: Absent: rhinorrhea, nasal congestion, throat pain, throat swelling, difficulty swallowing, mouth swelling, ear pain, eye pain, visual Changes CARDIOVASCULAR: Absent: chest pain, loss of consciousness, palpitations, irregular heart rate, peripheral edema RESPIRATORY: Absent: cough, shortness of breath, dyspnea with exertion, orthopnea, wheezing, stridor, hemoptysis GASTROINTESTINAL: Present: Abdominal pain Absent: abdominal distension, nausea, vomiting, diarrhea, constipation, melena, hematochezia GENITOURINARY: Absent: dysuria, frequency, urgency, hesitancy, hematuria, flank pain, genital pain MUSCULOSKELETAL: Absent: myalgia, arthralgia, joint swelling SKIN: Absent: rash, itching, pallor HEMATOLOGIC/IMMUNOLOGIC: Absent: easy bleeding, easy bruising, lymphadenopathy, frequent infections ENDOCRINE: Absent: unexplained weight gain, unexplained weight loss, heat intolerance, cold intolerance NEUROLOGIC: Absent: headache, focal weakness or paresthesias, dizziness, unsteady gait, seizure, mental status changes, bladder or bowel incontinence PSYCHIATRIC: Absent: anxiety, depression, suicidal or homicidal ideation, hallucinations. Is the patient limited Syriac proficient: No *Physical Exam - Vital Signs Last Vital Signs Temp Pulse Resp BP Pulse Ox 98.6 F 69 20 164/113 H 100 11/05/19 11:43 11/05/19 11:43 11/05/19 11:43 11/05/19 11:43 11/05/19 11:43 - Physical Exam 11/05/19 12:50 GENERAL: Well developed, well nourished. Awake and alert. No acute distress. HEENT: Normocephalic, atraumatic. PERRLA, EOMI. No conjunctival pallor. Sclera are non- icteric. Moist mucous membranes. NECK: Supple. Full ROM. No lymphadenopathy. CARDIOVASCULAR: Regular rate and rhythm. Distal pulses are 2+ and symmetric. PULMONARY: No evidence of respiratory distress. Breathing comfortably on room air. ABDOMINAL: Diffuse abdominal tenderness with focal tenderness over the left flank/left lower quadrant region. Soft. Non-distended. No rebound or guarding. No organomegaly. Normoactive bowel sounds. MUSCULOSKELETAL Normal range of motion at all joints. No bony deformities or tenderness. No CVA tenderness. EXTREMITIES: No cyanosis. No clubbing. No edema. No calf tenderness. SKIN: Warm and dry. Normal capillary refill. No rashes. No jaundice. NEUROLOGICAL: Alert, awake, appropriate. Cranial nerves 2-12 intact. No deficits to light touch and temperature in face, upper extremities and lower extremities. No motor deficits in the in face, upper extremities and lower extremities. Normoreflexic in the upper and lower extremities. Normal speech. Toes are down-going bi laterally. Gait is normal without ataxia. PSYCHIATRIC: Cooperative. Good eye contact. Appropriate mood and affect. ED Treatment Course - LABORATORY CBC & Chemistry Diagram: 11/05/19 12:30 11/05/19 12:30 Medical Decision Making - Medical Decision Making 11/05/19 12:51 Patient is a 39-year-old male with past medical history of hypertension, not on medications, presents to the ER today with left lower quadrant pain/abdominal pain for 1 week. He states that the pain was colicky in nature 1 week ago however had resolved. He states that starting yesterday the pain came back and this morning it became intolerable so he came to the emergency room for further evaluation. He states the pain is mostly in his left side coming down to his left abdomen. He has not taken any medication for his pain. Denies any surgical history. Denies fevers, chills, nausea, vomiting, diarrhea, dysuria and hematuria. A/P: Left lower quadrant pain On exam patient does have some tenderness of the left lower quadrant. Some flank pain without CVA tenderness on the left side also noted. Differential diagnosis includes but is not limited to kidney stone, diverticulitis, colitis, enteritis, hernia, UTI, Reginaldo, less likely appendicitis or cholecystitis. Basic labs, urine, CTAP with contrast ordered given broad differential. Reevaluate 11/05/19 16:17 White count within normal limits, normal electrolytes. Urine shows no evidence of infection. Patient with colitis as diagnosed on CAT scan. We will treat with Cipro Flagyl. Discharge home with GI follow-up. I discussed the physical exam findings, ancillary test results and final diagnoses with the patient. I answered all of the patient's questions. The patient was satisfied with the care received and felt comfortable with the disc harge plan and treatment plan. The Patient agrees to follow up with the primary care physician/specialist within 24-72 hours. Return precautions were given. Discharge - Discharge Information Problems reviewed: Yes Clinical Impression/Diagnosis: Colitis Condition: Stable Disposition: HOME - Admission No - Follow up/Referral Referrals: Jake Salcedo MD [Staff Physician] - - Patient Discharge Instructions Patient Printed Discharge Instructions: DI for Colitis Additional Instructions: You have colitis or inflammation of the colon. Please take the Cipro and Flagyl as directed for 1 week to help with your symptoms. Drink clear fluids for the first 24 hours to give your bowel rest. This includes naila tera, Jell-O's chicken broth. Avoid eating until your pain has started to improve. You may advance your diet slowly in 24 to 48 hours including soft foods and bland foods. You need to follow-up with GI within the week. A referral has been provided to you. Should you experience symptoms such as joint pain, ankle pain or pain near your tendons, please immediately stop the Cipro and follow-up with your primary care doctor as this could be a serious medication side effect. Return to the ER for worsening pain, fever, diarrhea or if you have any changes in your symptoms. - Post Discharge Activity Work/Back to School Note: Back to Work
[2019-11-05] MEDS ORDERED: ACETAMINOPHEN INJECTION 100 ML IVPB ONE ×2 (12:33→17:00)
--- NOTE | 2019-11-05 13:14 | PDOC ---
*Physical Exam - Vital Signs Last Vital Signs Temp Pulse Resp BP Pulse Ox 98.6 F 69 20 164/113 H 100 11/05/19 11:43 11/05/19 11:43 11/05/19 11:43 11/05/19 11:43 11/05/19 11:43 - Physical Exam 11/05/19 13:13 Afebrile No jaundice or pallor Left lower quadrant tenderness as noted ED Treatment Course - LABORATORY CBC & Chemistry Diagram: 11/05/19 12:30 11/05/19 12:30 - Medications Given in the ED: ED Medications Discontinued Medications Generic Name Dose Route Start Last Admin Trade Name Freq PRN Reason Stop Dose Admin Acetaminophen 1,000 mg 11/05/19 12:19 11/05/19 13:01 Ofirmev Injection - IVPB 11/05/19 12:20 1,000 mg ONCE ONE Administration Medical Decision Making - Medical Decision Making 11/05/19 13:13 Patient seen and evaluated with the nurse practitioner. I agree with the overall evaluation, assessment, and management with the following summary of visit: 39-year-old male presents with left lower quadrant/left flank pain with localizing tenderness to the left lower quadrant but no focal peritoneal findings. Prior CT in March 2017 without evidence of nephrolithiasis or diverticulosis. Labs, urinalysis CT of the abdomen and pelvis Reassess Discharge - Discharge Information Problems reviewed: Yes Clinical Impression/Diagnosis: Left lower quadrant abdominal pain - Follow up/Referral - Patient Discharge Instructions - Post Discharge Activity
[2019-11-05 13:26] LABS: BASO % 0.7 % (0-2.0); EOS % 1.2 % (0-4.5); HEMATOCRIT 44.6 % (35.4-49); HEMOGLOBIN 14.6 GM/dL (11.7-16.9); LYMPH % 25.8 % (8-40); MCHC 32.7 g/dl (32.0-35.9); MEAN CELL VOLUME 85.7 fl (80-96); MONO % 7.4 % (3.8-10.2); NEUT % 64.9 % (42.8-82.8); PLATELET COUNT 212 K/MM3 (134-434); RBC 5.21 M/mm3 (4.00-5.60); RDW 14.3 % (11.9-15.9); WHITE BLOOD COUNT 7.4 K/mm3 (4.0-10.0)
[2019-11-05 13:32] LABS: INR 0.92 (0.83-1.09); PROTHROMBIN TIME (PATIENT) 10.8 SEC (9.7-13.0)
[2019-11-05 13:55] LABS: BILIRUBIN,TOTAL 0.4 mg/dL (0.2-1); CALCIUM 9.3 mg/dL (8.5-10.1); CREATININE 1.2 mg/dL (0.55-1.3); POTASSIUM 4.1 mmol/L (3.5-5.1); TOT PROT 7.9 g/dl (6.4-8.2)
[2019-11-05 15:38] LABS: PH,URINE 6.5 (5.0-8.0); URINE APPEARANCE CLEAR; URINE BILIRUBIN NEGATIVE (NEGATIVE); URINE COLOR YELLOW; URINE GLUCOSE (UA) NEGATIVE (NEGATIVE); URINE KETONE NEGATIVE (NEGATIVE); URINE LEUK ESTERASE NEGATIVE (NEGATIVE); URINE NITRITE NEGATIVE (NEGATIVE); URINE PROTEIN NEGATIVE (NEGATIVE); URINE UROBILINOGEN 0.2 mg/dL (0.2-1.0)
[2019-11-05 17:50] VITALS: BP 147/92; PULSE 74; TEMP 98.3
== END 2019-11-05 17:30 | disposition home or self-care (01) ==
LOC: JER 11:41
PROC: 3E0333Z Introduction of Anti-inflammatory into Peripheral Vein, Percutaneous Approach (ICD-10-PCS; principal; 2019-11-05)
PROC: 3E033GC Introduction of Other Therapeutic Substance into Peripheral Vein, Percutaneous Approach (ICD-10-PCS; 2019-11-05)
PROC: 3E0337Z Introduction of Electrolytic and Water Balance Substance into Peripheral Vein, Percutaneous Approach (ICD-10-PCS; 2019-11-05)
DX: K52.9 Noninfective gastroenteritis and colitis, unspecified (principal)
CPT/HCPCS: 36415; 74177-TC; 80053; 81003; 83690; 85025; 85610; 87086; 99285-25; J0131; Q9967

== ENCOUNTER 2020-03-16 17:18 | Inpatient (IN) | payer BC ==
[2020-03-16 17:38] VITALS: BMI 27.2
[2020-03-16 18:36] LABS: BASO % 0.4 % (0-2.0); EOS % 0.3 % (0-4.5); HEMATOCRIT 44.6 % (35.4-49); HEMOGLOBIN 14.4 GM/dL (11.7-16.9); LYMPH % 27.9 % (8-40); MCH 27.4 pg (25.7-33.7); MCHC 32.3 g/dl (32.0-35.9); MEAN CELL VOLUME 84.6 fl (80-96); MEAN PLT VOLUME 10.1 fl (7.5-11.1); MONO % 10.8 % (3.8-10.2); NEUT % 60.6 % (42.8-82.8); PLATELET COUNT 231 K/MM3 (134-434); RBC 5.27 M/mm3 (4.00-5.60); RDW 14.9 % (11.9-15.9)
[2020-03-16 18:44] LABS: INR 1.03 (0.83-1.09); PROTHROMBIN TIME (PATIENT) 12.7 SEC (9.7-13.0)
[2020-03-16 18:47] LABS: ACTIVATED PTT 33.3 SECONDS (25.2-36.5)
[2020-03-16] MEDS ORDERED: amLODIPine BESYLATE 10 MG TABLET (FP) PO ONE (19:01)
[2020-03-16] MEDS ORDERED: amLODIPine BESYLATE 5 MG TABLET (FP) ONE (19:09)
[2020-03-16] MEDS ORDERED: ASPIRIN 325 MG TABLET PO ONE (19:50)
[2020-03-16] MEDS ORDERED: NITROGLYCERIN SUBLINGUAL 1/200 0.3 MG BTL SL ONE (19:51)
[2020-03-16] MEDS ORDERED: ASPIRIN 81 MG CHEWABLE TABLETS ONE (20:01)
[2020-03-16] MEDS ORDERED: NITROGLYCERIN SUBLINGUAL 1/150 0.4 MG TAB ONE (20:02)
[2020-03-16] MEDS ORDERED: NITROGLYCERIN SUBLINGUAL 1/150 0.4 MG TAB SL ONE (20:09)
[2020-03-16] MEDS ORDERED: ASPIRIN 81 MG CHEWABLE TABLETS PO ONE (20:09)
[2020-03-16 21:00] LABS: CHLORIDE 106 mmol/L (98-107); POTASSIUM 4.3 mmol/L (3.5-5.1)
[2020-03-16 21:05] LABS: ALBUMIN 4.2 g/dl (3.4-5.0)
[2020-03-16 21:10] LABS: BILIRUBIN,TOTAL 0.4 mg/dL (0.2-1); TOT PROT 8.2 g/dl (6.4-8.2)
[2020-03-16 21:53] LABS: BLOOD UREA NITROGEN 15.8 mg/dL (7-18); CALCIUM 9.5 mg/dL (8.5-10.1); CO2 27 mmol/L (21-32); CREATININE 1.1 mg/dL (0.55-1.3); GLUCOSE,RANDOM 88 mg/dL (74-106)
[2020-03-16 21:54] LABS: ALK PHOS 99 U/L (45-117); SGPT/ALT 36 U/L (13-61); SODIUM 140 mmol/L (136-145)
[2020-03-16 22:02] LABS: ANION GAP 6 MMOL/L (8-16); SGOT/AST 28 U/L (15-37)
[2020-03-17] MEDS ORDERED: ACETAMINOPHEN INJECTION 100 ML IVPB ONE (01:44)
[2020-03-17] MEDS ORDERED: ACETAMINOPHEN 1000 MG/100 ML VIAL (NON FORMULARY) IVPB ONE (01:45)
[2020-03-17 06:40] LABS: PH,URINE 6.5 (5.0-8.0); URINE APPEARANCE CLEAR; URINE BILIRUBIN NEGATIVE (NEGATIVE); URINE COLOR YELLOW; URINE GLUCOSE (UA) NEGATIVE (NEGATIVE); URINE KETONE TRACE (NEGATIVE); URINE LEUK ESTERASE NEGATIVE (NEGATIVE); URINE NITRITE NEGATIVE (NEGATIVE); URINE PROTEIN NEGATIVE (NEGATIVE); URINE UROBILINOGEN 0.2 mg/dL (0.2-1.0)
[2020-03-17 07:37] LABS: HEMATOCRIT 43.5 % (35.4-49); HEMOGLOBIN 14.3 GM/dL (11.7-16.9); MCH 27.8 pg (25.7-33.7); MCHC 32.9 g/dl (32.0-35.9); MEAN CELL VOLUME 84.5 fl (80-96); MEAN PLT VOLUME 10.2 fl (7.5-11.1); PLATELET COUNT 229 K/MM3 (134-434); RBC 5.15 M/mm3 (4.00-5.60); RDW 14.7 % (11.9-15.9); WHITE BLOOD COUNT 4.9 K/mm3 (4.0-10.0)
[2020-03-17 07:49] LABS: CHLORIDE 105 mmol/L (98-107); SODIUM 139 mmol/L (136-145)
[2020-03-17 08:01] LABS: CALCIUM 8.9 mg/dL (8.5-10.1); GLUCOSE,RANDOM 83 mg/dL (74-106); SGPT/ALT 30 U/L (13-61)
[2020-03-17 08:02] LABS: ALBUMIN 3.8 g/dl (3.4-5.0); ANION GAP 5 MMOL/L (8-16); BLOOD UREA NITROGEN 13.6 mg/dL (7-18); CO2 29 mmol/L (21-32); MAGNESIUM 2.3 mg/dL (1.8-2.4)
[2020-03-17 08:03] LABS: PHOSPHOROUS 3.8 mg/dL (2.5-4.9); SGOT/AST 23 U/L (15-37); TRIGLYCERIDES 154 mg/dL (0-150)
[2020-03-17 08:04] LABS: BILIRUBIN,TOTAL 0.8 mg/dL (0.2-1); CHOLESTEROL 161 mg/dL (50-200); LDL CHOLESTEROL (ONLY SJRH) 99 mg/dL (5-100)
[2020-03-17 08:05] LABS: CREATININE 1.1 mg/dL (0.55-1.3); TOT PROT 7.5 g/dl (6.4-8.2)
[2020-03-17 08:06] LABS: ALK PHOS 95 U/L (45-117); HDL CHOLESTEROL 35 mg/dL (40-60)
[2020-03-17] MEDS ORDERED: amLODIPine BESYLATE 5 MG TABLET (FP) PO SCH (10:00)
[2020-03-17] MEDS ORDERED: HYDROCHLOROTHIAZIDE 25 MG TABLET (FP) PO SCH ×2 (10:00)
[2020-03-17] MEDS ORDERED: amLODIPine BESYLATE 5 MG TABLET (FP) ONE (10:10)
[2020-03-17] MEDS ORDERED: HYDROCHLOROTHIAZIDE 25 MG TABLET (FP) ONE (10:11)
[2020-03-17 14:09] VITALS: BP 141/97; PULSE 69; TEMP 97.8
[2020-03-17] MEDS ORDERED: LISINOPRIL 5 MG TABLET PO SCH (22:00)
== END 2020-03-17 15:39 | disposition home or self-care (01) | DRG 305 ==
LOC: JER 17:18 → JERBED 22:11 → OBSVTOIN 22:11
PROVIDERS: ADMIT Internal Medicine; ATTEND Internal Medicine
DX: I16.0 Hypertensive urgency (principal); M54.9 Dorsalgia, unspecified; R07.9 Chest pain, unspecified
CPT/HCPCS: 36415; 71046-TC-FY; 80053; 80061; 81003; 82550; 82553; 83721; 83735; 84100; 84484; 85025; 85027; 85379; 85610; 85730; 93005; 93010; 99285-25; C9803; J0131; U0003

== ENCOUNTER 2023-06-05 13:04 | Emergency (ER) | payer BC ==
[2023-06-05 13:11] VITALS: BP 196/120; PULSE 63; RESP 20; TEMP 97; BMI 35.2
[2023-06-05] MEDS: KETOROLAC TROMETHAMINE 15 MG/ML VIAL IM ONE (13:43)
[2023-06-05] MEDS ORDERED: KETOROLAC TROMETHAMINE 30 MG/1 ML VIAL ONE (13:49)
== END 2023-06-05 15:12 | disposition home or self-care (01) ==
LOC: FER 13:04
PROC: 3E0233Z Introduction of Anti-inflammatory into Muscle, Percutaneous Approach (ICD-10-PCS; principal; 2023-06-05)
DX: S69.91XA Unspecified injury of right wrist, hand and finger(s), initial encounter (principal); Y04.0XXA Assault by unarmed brawl or fight, initial encounter
CPT/HCPCS: 70486-TC; 73110-TC-RT-FY; 73130-TC-RT-FY; 99284-25

== ENCOUNTER 2023-06-09 11:41 | Emergency (ER) | payer BC ==
[2023-06-09 12:12] VITALS: PULSE 65; RESP 18; TEMP 98; BMI 36.9
[2023-06-09] MEDS ORDERED: ACETAMINOPHEN 500 MG TABLET (FP) ONE (12:15)
[2023-06-09] MEDS: ACETAMINOPHEN 500 MG TABLET (FP) PO ONE (12:17)
[2023-06-09 13:41] VITALS: BP 150/86
== END 2023-06-09 14:39 | disposition home or self-care (01) ==
LOC: FER 11:41
DX: R51.9 Headache, unspecified (principal); H11.32 Conjunctival hemorrhage, left eye; R93.89 Abnormal findings on diagnostic imaging of other specified body structures; Y04.0XXA Assault by unarmed brawl or fight, initial encounter
CPT/HCPCS: 70450-TC; 70486-TC; 99284-25